=== PATIENT | male | born 1945 | race Caucasian/White ===

== ENCOUNTER 2019-01-03 00:31 | Inpatient (IN) | payer BC, MEDICARE ==
[~2019-01-03] VITALS: Ht 177.8 cm; Wt 111.7 kg
--- NOTE | 2019-01-03 01:01 | NUR ---
TASK RN: PT SITTING UP IN [place], AWAKE/ALERT. NAD NOTED. PT REPORTS "CHILLS" X TODAY. RECENTLY DX'D WITH NOROVIRUS AT HOSPITAL IN [place] WHERE HE AND HIS WERE ADMITTED FOR [place]. DAUGHTER REPORTS THAT PASSED FOLLOWING COMPLICATIONS. "HE WAS JUST ACTING THE SAME WHEN HE HAD NOROVIRUS". PER DAUGHTER, LAST ABX APPROX ONE MONTH AGO. 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 "HE CAN'T HAVE MOTRIN BECAUSE OF THE BLOOD THINNER HE IS ON". BP/SPO2 MONITOR IN PLACE. IV ESTABLISHED. BC X1 DRAWN WITH IV START. ERP AT BEDSIDE FOR INITIAL ASSESSMENT.
[2019-01-03] MEDS ORDERED: ACETAMINOPHEN 500 MG TABLET ONE (01:28)
[2019-01-03] MEDS ORDERED: ACETAMINOPHEN 500 MG TABLET PO ONE (01:30)
[2019-01-03] MEDS ORDERED: SODIUM CHLORIDE 0.9% 1,000ML IVBOLUS ONE (01:30)
[2019-01-03 01:54] LABS: BASOPHILS # (AUTO) 0.01 x10^3/uL (0-0.1); BASOPHILS % (AUTO) 0 % (0-1); EOSINOPHILS # (AUTO) 0.03 x10^3/uL (0-0.4); EOSINOPHILS % (AUTO) 0 % (1-7); LYMPHOCYTES # (AUTO) 0.62 x10^3/uL (1-3.4); LYMPHOCYTES % (AUTO) 5 % (22-44); MD NO; MEAN CORPUSCULAR HEMOGLOBIN 29.2 pg (27.5-34.5); MEAN CORPUSCULAR HGB CONC 31.8 g/dL (33.2-36.2); MEAN CORPUSCULAR VOLUME 91.7 fL (81-97); MEAN PLATELET VOLUME 7.6 fL (7.4-10.4); MONOCYTES # (AUTO) 0.78 x10^3/uL (0.2-0.8); MONOCYTES % (AUTO) 6 % (2-9); NEUTROPHILS # (AUTO) 11.48 x10^3/uL (1.8-6.8); NEUTROPHILS % (AUTO) 89 % (42-75); PLATELET COUNT 209 x10^3/uL (130-400); RED BLOOD COUNT 4.24 x10^6/uL (4.38-5.82); RED CELL DISTRIBUTION WIDTH 16.1 % (9.4-14.8)
[2019-01-03] MEDS ORDERED: VANCOMYCIN PER PHARMACY MC PRN (02:00)
[2019-01-03] MEDS ORDERED: CEFEPIME 1 GM in DEXTROSE 5% 50 ML IV ONE (02:00)
[2019-01-03] MEDS ORDERED: VANCOMYCIN 1,700 MG in SODIUM CHLORIDE 0.9% 250 ML IV ONE (02:00)
[2019-01-03 02:01] LABS: ALBUMIN 4.1 g/dL (3.4-5.0); ANION GAP 7 mmol/L (5-15); CALCIUM 9.2 mg/dL (8.5-10.1); CHLORIDE 106 mmol/L (98-107)
[2019-01-03 02:04] LABS: ALANINE AMINOTRANSFERASE 24 U/L (12-78); ALKALINE PHOSPHATASE 124 U/L (45-117); BILIRUBIN,TOTAL 1.6 mg/dL (0.2-1.0)
[2019-01-03] MEDS ORDERED: HYDR25TA6 PO (02:18)
[2019-01-03] MEDS ORDERED: LISI40TA PO (02:18)
[2019-01-03] MEDS ORDERED: POTA20PA25 PO (02:18)
[2019-01-03] MEDS ORDERED: GABA600T PO (02:18)
[2019-01-03] MEDS ORDERED: OXYC20TA2 PO (02:18)
[2019-01-03] MEDS ORDERED: ATOR10TA PO (02:18)
[2019-01-03] MEDS ORDERED: AMLO-150 PO (02:18)
[2019-01-03] MEDS ORDERED: WARF4TAB65 PO (02:18)
--- NOTE | 2019-01-03 02:20 | NUR ---
FRANCY RUNNING. MED REC COMPLETE. FAMILY AT BEDSIDE. CALL LIGHT IN REACH
[2019-01-03 03:13] LABS: CULTURE INDICATED? NO; MICROSCOPIC AUTO
--- NOTE | 2019-01-03 03:20 | NUR ---
FERMIN VALLES. UA SENT TO LAB. HR IMPROVED. CALL LIGHT IN REACH
[2019-01-03 03:59] VITALS: BP 144/76
[2019-01-03] MEDS ORDERED: ONDANSETRON ODT 4 MG PO PRN (04:30)
[2019-01-03] MEDS ORDERED: hydrALAzine 20 MG/ML, 1ML IVPush PRN (04:30)
[2019-01-03] MEDS ORDERED: PROMETHAZINE 25 MG/ML, 1ML IM PRN (04:30)
[2019-01-03] MEDS ORDERED: ACETAMINOPHEN 325 MG TABLET PO PRN (04:30)
[2019-01-03] MEDS ORDERED: BISACODYL 10 MG SUPP PR PRN (04:30)
[2019-01-03] MEDS ORDERED: DOCUSATE 100 MG CAPSULE PO PRN (04:30)
[2019-01-03] MEDS ORDERED: POLYETHYLENE GLYCOL 17 GM PACKET PO PRN (04:30)
[2019-01-03] MEDS ORDERED: morphine SULFATE 10 MG/ML, 1ML IVPush PRN (04:30)
[2019-01-03] MEDS ORDERED: ONDANSETRON 2MG/ML, 2ML IVPush PRN (04:30)
[2019-01-03] MEDS: CEFTRIAXONE PMX 2GM/50ML 50 ML IV SCH (04:53)
[2019-01-03 05:19] LABS: RAPID INFLUENZA A Negative (Negative); RAPID INFLUENZA B Negative (Negative)
[2019-01-03] MEDS: DOXYCYCLINE 100 MG in DEXTROSE 5% 250 ML IV SCH ×2 (05:48→18:00)
[2019-01-03 06:20] LABS: INTERNATIONAL NORMALIZED RATIO 3.35 (0.93-1.1); PROTHROMBIN TIME 33.6 Seconds (9.6-11.5)
[2019-01-03 06:29] LABS: FREE T4 (FREE THYROXINE) 1.26 ng/dL (0.76-1.46); TROPONIN I 0.722 ng/mL (0.000-0.045)
[2019-01-03 06:35] LABS: THYROID STIMULATING HORMONE 0.275 mIU/L (0.358-3.740)
[2019-01-03 06:44] LABS: HEMOGLOBIN A1C 6.2 % (4.2-6.3)
[2019-01-03 07:23] VITALS: BP 125/75
[2019-01-03] MEDS: HYDROCHLOROTHIAZIDE 25 MG TABLET PO SCH (07:37)
[2019-01-03] MEDS: GABAPENTIN 300 MG CAPSULE PO SCH ×3 (07:37→20:21)
[2019-01-03] MEDS: LISINOPRIL 40 MG TABLET PO SCH (07:37)
[2019-01-03] MEDS: AMLODIPINE 5 MG TABLET PO SCH (07:37)
[2019-01-03] MEDS: OXYcodone IR 5MG TABLET PO PRN ×3 (07:37→22:08)
[2019-01-03 09:26] LABS: TROPONIN I 0.769 ng/mL (0.000-0.045)
[2019-01-03 11:15] VITALS: BP 143/75
[2019-01-03 13:04] VITALS: BP 160/77
[2019-01-03] MEDS ORDERED: WARFARIN 2 MG TABLET PO-COUM ONE (18:00)
[2019-01-03] MEDS ORDERED: WARFARIN 2 MG TABLET PO-COUM SCH (18:00)
[2019-01-03 19:49] VITALS: BP 141/80
[2019-01-03] MEDS: ATORVASTATIN 10 MG TABLET PO SCH (20:19)
[2019-01-04 01:17] VITALS: BP 153/74
[2019-01-04] MEDS: OXYcodone IR 5MG TABLET PO PRN ×5 (02:01→20:47)
[2019-01-04] MEDS: CEFTRIAXONE PMX 2GM/50ML 50 ML IV SCH (04:20)
[2019-01-04] MEDS: DOXYCYCLINE 100 MG in DEXTROSE 5% 250 ML IV SCH ×2 (05:15→17:34)
[2019-01-04 05:51] LABS: BASOPHILS # (AUTO) 0.03 x10^3/uL (0-0.1); BASOPHILS % (AUTO) 1 % (0-1); EOSINOPHILS # (AUTO) 0.02 x10^3/uL (0-0.4); EOSINOPHILS % (AUTO) 0 % (1-7); LYMPHOCYTES # (AUTO) 1.16 x10^3/uL (1-3.4); LYMPHOCYTES % (AUTO) 21 % (22-44); MD NO; MEAN CORPUSCULAR HEMOGLOBIN 29.9 pg (27.5-34.5); MEAN CORPUSCULAR HGB CONC 32.3 g/dL (33.2-36.2); MEAN CORPUSCULAR VOLUME 92.6 fL (81-97); MEAN PLATELET VOLUME 7.8 fL (7.4-10.4); MONOCYTES # (AUTO) 0.63 x10^3/uL (0.2-0.8); MONOCYTES % (AUTO) 12 % (2-9); NEUTROPHILS # (AUTO) 3.59 x10^3/uL (1.8-6.8); NEUTROPHILS % (AUTO) 66 % (42-75); PLATELET COUNT 192 x10^3/uL (130-400); RED BLOOD COUNT 4.01 x10^6/uL (4.38-5.82); RED CELL DISTRIBUTION WIDTH 16.4 % (9.4-14.8)
[2019-01-04 05:53] LABS: INTERNATIONAL NORMALIZED RATIO 3.16 (0.93-1.1); PROTHROMBIN TIME 31.7 Seconds (9.6-11.5)
[2019-01-04 05:56] LABS: CHLORIDE 106 mmol/L (98-107)
[2019-01-04 06:13] LABS: ALANINE AMINOTRANSFERASE 24 U/L (12-78); ALBUMIN 3.3 g/dL (3.4-5.0); ALKALINE PHOSPHATASE 97 U/L (45-117); ANION GAP 9 mmol/L (5-15); BILIRUBIN,TOTAL 1.4 mg/dL (0.2-1.0); CALCIUM 8.9 mg/dL (8.5-10.1); CHOLESTEROL, TOTAL 118 mg/dL (140-239); CREATININE 0.85 mg/dL (0.7-1.3); HDL CHOL % 33 % (26-37); HDL CHOLESTEROL (DIRECT) 39 mg/dL (40-60); LDL CHOLESTEROL,CALCULATED 67 mg/dL (54-169); LDL/HDL RATIO 1.7 (0.5-3.0); TOTAL PROTEIN 6.8 g/dL (6.4-8.2); TRIGLYCERIDES 59 mg/dL (50-200); VLDL CHOLESTEROL 12 mg/dL (0-25)
[2019-01-04 08:29] VITALS: BP 119/71
[2019-01-04] MEDS ORDERED: LISINOPRIL 20 MG TABLET ONE (08:47)
[2019-01-04] MEDS: AMLODIPINE 5 MG TABLET PO SCH (08:52)
[2019-01-04] MEDS: HYDROCHLOROTHIAZIDE 25 MG TABLET PO SCH (08:53)
[2019-01-04] MEDS: GABAPENTIN 300 MG CAPSULE PO SCH ×3 (08:53→20:47)
[2019-01-04] MEDS: LISINOPRIL 40 MG TABLET PO SCH (08:53)
[2019-01-04] MEDS ORDERED: FUROSEMIDE 40 MG/4 ML IV ONE (13:00)
[2019-01-04 14:00] VITALS: BP 128/78
[2019-01-04] MEDS ORDERED: WARFARIN 2 MG TABLET PO-COUM SCH (18:00)
[2019-01-04 20:03] VITALS: BP 124/76
[2019-01-04] MEDS: ATORVASTATIN 10 MG TABLET PO SCH (20:47)
[2019-01-05 01:28] VITALS: BP 129/79
[2019-01-05] MEDS: OXYcodone IR 5MG TABLET PO PRN ×2 (02:24→07:51)
[2019-01-05] MEDS: CEFTRIAXONE PMX 2GM/50ML 50 ML IV SCH (04:08)
[2019-01-05] MEDS: DOXYCYCLINE 100 MG in DEXTROSE 5% 250 ML IV SCH ×2 (05:06→17:34)
[2019-01-05 06:21] LABS: BASOPHILS # (AUTO) 0.03 x10^3/uL (0-0.1); BASOPHILS % (AUTO) 1 % (0-1); EOSINOPHILS # (AUTO) 0.14 x10^3/uL (0-0.4); EOSINOPHILS % (AUTO) 3 % (1-7); LYMPHOCYTES # (AUTO) 1.48 x10^3/uL (1-3.4); LYMPHOCYTES % (AUTO) 26 % (22-44); MD NO; MEAN CORPUSCULAR HEMOGLOBIN 29.7 pg (27.5-34.5); MEAN CORPUSCULAR HGB CONC 32.3 g/dL (33.2-36.2); MEAN CORPUSCULAR VOLUME 92.2 fL (81-97); MEAN PLATELET VOLUME 7.8 fL (7.4-10.4); MONOCYTES # (AUTO) 0.57 x10^3/uL (0.2-0.8); MONOCYTES % (AUTO) 10 % (2-9); NEUTROPHILS % (AUTO) 61 % (42-75); PLATELET COUNT 204 x10^3/uL (130-400); RED BLOOD COUNT 4.33 x10^6/uL (4.38-5.82)
[2019-01-05 06:29] LABS: INTERNATIONAL NORMALIZED RATIO 2.92 (0.93-1.1); PROTHROMBIN TIME 29.4 Seconds (9.6-11.5)
[2019-01-05 06:35] LABS: ANION GAP 8 mmol/L (5-15); CALCIUM 9.4 mg/dL (8.5-10.1); CHLORIDE 105 mmol/L (98-107)
[2019-01-05 06:36] LABS: CREATININE 0.86 mg/dL (0.7-1.3)
[2019-01-05] MEDS ORDERED: LISINOPRIL 20 MG TABLET ONE (07:36)
[2019-01-05] MEDS: GABAPENTIN 300 MG CAPSULE PO SCH ×2 (07:50→17:33)
[2019-01-05] MEDS: AMLODIPINE 5 MG TABLET PO SCH (07:50)
[2019-01-05] MEDS: LISINOPRIL 40 MG TABLET PO SCH (07:51)
[2019-01-05 07:53] VITALS: BP 160/82
[2019-01-05] MEDS ORDERED: REGADENOSON 0.4 MG/5 ML SYRINGE ONE (08:22)
[2019-01-05] MEDS ORDERED: FUROSEMIDE 20 MG TABLET PO SCH (09:00)
[2019-01-05] MEDS ORDERED: POTASSIUM CHLORIDE 20 MEQ TAB.ER.PRT PO ONE (10:00)
[2019-01-05] MEDS: CARVEDILOL 3.125 MG TABLET PO SCH ×2 (11:13→17:34)
[2019-01-05 13:17] VITALS: BP 129/69
[2019-01-05] MEDS ORDERED: CEFD300C37 PO ×2 (16:47→16:51)
[2019-01-05] MEDS ORDERED: DOXY100T10 PO ×2 (16:47→16:51)
[2019-01-05] MEDS ORDERED: FURO20TA3 PO ×2 (16:47→16:51)
[2019-01-05] MEDS ORDERED: CARV3.1212 PO (16:47)
[2019-01-05] MEDS ORDERED: POTA10TA11 PO ×3 (16:47→16:51)
[2019-01-05] MEDS ORDERED: WARFARIN 2.5 MG TABLET PO-COUM SCH (18:00)
== END 2019-01-05 18:01 | disposition home or self-care (01) | DRG 871 ==
LOC: ED 03:45 → EDIP 03:47 → 4NOR 03:53 → 5SO 10:47
PROVIDERS: ADMIT Internal Medicine; ATTEND Internal Medicine
DX: A41.9 Sepsis, unspecified organism (principal); I50.43 Acute on chronic combined systolic (congestive) and diastolic (congestive) heart failure; J96.01 Acute respiratory failure with hypoxia; J18.9 Pneumonia, unspecified organism; D68.69 Other thrombophilia; D64.9 Anemia, unspecified; E66.9 Obesity, unspecified; E78.5 Hyperlipidemia, unspecified; Z68.35 Body mass index [BMI] 35.0-35.9, adult; I08.1 Rheumatic disorders of both mitral and tricuspid valves; I11.0 Hypertensive heart disease with heart failure; I48.0 Paroxysmal atrial fibrillation; Z79.01 Long term (current) use of anticoagulants
CPT/HCPCS: 36415; 71045; 78452; 80048; 80053; 80061; 81001; 83036; 83605; 83735; 84439; 84443; 84484; 85025; 85610; 87040; 87400; 93005; 93017; 93306; 96365; 99285; G0378; J0692; J0696; J1940; J2550; J2785; J3370; J7060; A9502; C9898; J7030; J7050